=== PATIENT | female | born 1955 | race Caucasian/White ===

== ENCOUNTER → 2017-12-04 | Outpatient (CLI) | payer MEDICAID ==
--- NOTE | 2017-12-04 11:13 | RADIOLOGY REPORT (SQ) ---
EXAM DESCRIPTION: U/S ABDOMEN COMPLETE W/DOPPLER COMPLETED DATE/TIME: 12/04/2017 10:58 am REASON FOR STUDY: RUQ PAIN (R10.11) R10.11 RIGHT UPPER QUADRANT PAIN COMPARISON: None. TECHNIQUE: Dynamic and static grayscale images acquired of the abdomen and recorded on PACS. Additio nal selected color Doppler and spectral images recorded. LIMITATIONS: Study is limited somewhat due to overlying bowel gas P FINDINGS: PANCREAS: No masses. Visualized pancreatic duct normal caliber. Pancreatic tail was not v isualized LIVER: Echotexture is coarse with increased echogenicity consistent with fatty infiltration. LIVER VASCULATURE: Normal directional flow of the main portal vein. GALLBLADDER: Large solitary gallstone is identified. Normal wall thickness. No pericholecystic fluid. ULTRASOUND-DETECTED MUNIZ'S SIGN: Negative. INTRAHEPATIC DUCTS AND COMMON DUCT: CBD and intrahepatic ducts normal caliber. No filling defects. INFERIOR VENA CAVA: Normal flow. AORTA: No aneurysm. The distal abdominal aorta was not visualized. RIGHT KIDNEY: 11.2 cm in length. Normal echogenicity. No solid or suspicious masses. No hydron ephrosis. No calcifications. LEFT KIDNEY: 10.2 cm in length. Normal echogenicity. No solid or suspicious masses. No hydrone phrosis. No calcifications. SPLEEN:Normal size. No solid masses. PERITONEAL AND PLEURAL SPACES: No ascites or effusions. OTHER: No other significant finding. IMPRESSION: FATTY LIVER. Large solitary gallstone. Other findings as noted above TECHNICAL DOCUMENTATION: JOB ID: [id number]- All Rights Reserved Reading location - IP/workstation name: [email or web address]
--- NOTE | 2017-12-04 13:28 | RADIOLOGY REPORT (SQ) ---
EXAM DESCRIPTION: NM HIDA SCAN COMPLETED DATE/TIME: 12/04/2017 1:14 pm REASON FOR STUDY: RUQ PAIN (R10.11) R10.11 RIGHT UPPER QUADRANT PAIN COMPARISON: Abdominal ultrasound dated 12/04/2017 RADIONUCLIDE AND DOSE: DOSAGE RADIONUCLIDE: 5.39 millicuries Tc99m Mebrofenin. DOSAGE MORPHINE: Not required. The route of agent administration: Intravenous TECHNIQUE: Serial imaging right upper quadrant up to 60 minutes following injection of radionuclide. Patient imaged AP and Right Lateral. LIMITATIONS: None. FINDINGS: LIVER: Normal visualization without areas of photopenia. INTRA-HEPATIC BILE DUCTS: Temporal visualization normal. No dilatation. COMMON BILE DUCT: Normal without dilatation or delayed visualization. GALLBLADDER: There is minimal visualization of the gallbladder with an apparent intraluminal filling defect presumably representing the large gallstone identified on the ultrasound examination. OTHER: No other significant finding. IMPRESSION: No evidence for CYSTIC OR COMMON DUCT OBSTRUCTION. Other findings as noted above TECHNICAL DOCUMENTATION: JOB ID: [id number] [employer]- All Rights Reserved Reading location - IP/workstation name: [email or web address]
== END ==
LOC: RAD 10:00
PROVIDERS: ATTEND Internal Medicine Gastroenterology
DX: R10.11 Right upper quadrant pain (principal); K80.80 Other cholelithiasis without obstruction
CPT/HCPCS: 76700; 93976; 78226; A9537; Q9969